=== PATIENT | male | born 1995 | race Caucasian/White ===

== ENCOUNTER 2022-07-17 11:19 | Emergency (ER) | payer MEDICAID ==
[~2022-07-17] VITALS: Ht 170.2 cm; Wt 87.0 kg
[2022-07-17 11:37] VITALS: BP 148/89
[2022-07-17] MEDS ORDERED: IBUPROFEN 400MG TABLET PO ONE (15:30)
[2022-07-17] MEDS ORDERED: ACETAMINOPHEN 325MG TABLET PO ONE (15:30)
[2022-07-17] MEDS ORDERED: TETANUS, DIPHTHERIA, PERTUSSIS VAC/PF 0.5ML (>10YR OLD) IM ONE (15:30)
[2022-07-17] MEDS ORDERED: CEFTRIAXONE 2 G in DEXTROSE 5% WATER 50 ML IV NR (16:45)
[2022-07-17] MEDS ORDERED: LIDOCAINE HCL 1% 20ML VIAL (Pyxis) INJ INFIL ONE (16:45)
[2022-07-17] MEDS ORDERED: CEFTRIAXONE 2 G PREMIX 50 ML IV ONE (16:45)
[2022-07-17] MEDS ORDERED: CEFTRIAXONE 2 G PREMIX 50 ML IV NR (17:00)
[2022-07-17] MEDS ORDERED: CEPH500T MT (19:34)
== END 2022-07-17 18:50 | disposition home or self-care (01) ==
LOC: ER 13:31
DX: S62.631B Displaced fracture of distal phalanx of left index finger, initial encounter for open fracture (principal); R03.0 Elevated blood-pressure reading, without diagnosis of hypertension; W29.8XXA Contact with other powered hand tools and household machinery, initial encounter; Y93.89 Activity, other specified; Y92.89 Other specified places as the place of occurrence of the external cause
CPT/HCPCS: 12002; 73130; 90471; 90715; 96365; 99284; J0696; J3490; J7060; Z7610

== ENCOUNTER 2022-07-20 07:13 | Emergency (ER) | payer MEDICAID ==
[~2022-07-20] VITALS: Ht 170.2 cm; Wt 82.0 kg
[~2022-07-20 07:13] MED LIST: CEPH500T MT
[2022-07-20 07:29] VITALS: BP 140/73
== END 2022-07-20 07:59 | disposition home or self-care (01) ==
LOC: ER 07:13
DX: Z48.00 Encounter for change or removal of nonsurgical wound dressing (principal)
CPT/HCPCS: 99281

== ENCOUNTER 2022-07-27 07:26 | Emergency (ER) | payer MEDICAID ==
[~2022-07-27] VITALS: Ht 170.2 cm; Wt 82.0 kg
[2022-07-27 07:32] VITALS: BP 164/98
== END 2022-07-27 08:28 | disposition home or self-care (01) ==
LOC: ER 07:26
DX: S61.211D Laceration without foreign body of left index finger without damage to nail, subsequent encounter (principal); Z48.00 Encounter for change or removal of nonsurgical wound dressing; Z13.9 Encounter for screening, unspecified; X58.XXXD Exposure to other specified factors, subsequent encounter
CPT/HCPCS: 99281; Z7610